=== PATIENT | male | born 1975 | race African-American/Black ===

== ENCOUNTER 2024-08-22 08:44 | Emergency (ER) | payer OTHER, MEDICAID ==
[~2024-08-22] VITALS: Ht 172.7 cm; Wt 70.0 kg
[2024-08-22 08:56] VITALS: O2SAT 100
[2024-08-22 09:49] LABS: BASOPHILS % 0.8 % (0.0-2.0); DIFFERENTIAL COMMENT 0; EOSINOPHILS % 0.3 % (0.0-5.0); HEMATOCRIT. 36.9 % (42.0-52.0); HEMOGLOBIN. 11.8 g/dL (14.0-18.0); LYMPHOCYTES % 23.6 % (20.0-50.0); MEAN CORPUSCULAR HEMOGLOBIN 25.1 pg (28.0-32.0); MEAN CORPUSCULAR HGB CONC 32.1 g/dL (31.0-37.0); MEAN CORPUSCULAR VOLUME 78.2 fL (80.0-94.0); MEAN PLATELET VOLUME 7.4 fl (7.4-10.4); MONOCYTES % 8.9 % (2.0-8.0); NEUTROPHILS % 66.4 % (40.0-76.0); PLATELET 288 x1000/uL (130-400); RED BLOOD CELL COUNT 4.72 mill/uL (4.7-6.1); RED CELL DISTRIBUTION WIDTH 15.8 % (11.6-14.6); WHITE BLOOD COUNT 4.3 x1000/uL (4.5-11.0)
[2024-08-22 09:55] LABS: CHLORIDE 107 mEq/L (98-107); POTASSIUM 3.6 mEq/L (3.5-5.1); SODIUM 142 mEq/L (136-145)
[2024-08-22 09:56] LABS: CALCIUM 9.3 mg/dL (8.7-10.4); CARBON DIOXIDE 21 mEq/L (21-32)
[2024-08-22] MEDS: MORPHINE SULFATE 4 MG/ML INJ (FOR IV/IM USE) IV ONE (09:57)
[2024-08-22 10:01] LABS: CREATININE 0.9 mg/dL (0.6-1.3); GLUCOSE 86 mg/dL (70-105); UREA NITROGEN BLOOD 16 mg/dL (9-23)
[2024-08-22] MEDS: PROPOFOL 200MG/20ML VIAL IV ONE (12:56)
[2024-08-22] MEDS: KETAMINE HCL 50 MG/ML 10ML IV ONE (12:56)
[2024-08-22] MEDS ORDERED: KETO10TA2 MT (13:39)
[2024-08-22 14:23] VITALS: BP 128/72; PULSE 84; RESP 13; TEMP 37.2; O2SAT 99
== END 2024-08-22 14:24 | disposition home or self-care (01) ==
LOC: ER 09:27
DX: S82.492A Other fracture of shaft of left fibula, initial encounter for closed fracture (principal); S93.05XA Dislocation of left ankle joint, initial encounter; W01.0XXA Fall on same level from slipping, tripping and stumbling without subsequent striking against object, initial encounter; Y93.89 Activity, other specified; Y92.89 Other specified places as the place of occurrence of the external cause; Y99.8 Other external cause status
CPT/HCPCS: 80048; 85025; 86850; 86900; 86901; 36415; 73590; 73610; 73630; 27840; 96374; 99152; 99291; J3490; J2704; J2270; Z7610 ×4; 27830; A4606